=== PATIENT | male | born 1960 | race Hispanic/Latino ===

== ENCOUNTER 2023-07-21 05:45 | Day surgery (SDC) | payer OTHER ==
[2023-07-20 12:28] LABS: BASOPHILS # (AUTO) 0.05 K/uL (0.00-0.20); BASOPHILS % (AUTO) 0.5 % (0.0-5.0); EOSINOPHILS # (AUTO) 0.38 K/uL (0.00-0.70); EOSINOPHILS % (AUTO) 3.5 % (0.0-8.0); HEMATOCRIT 37.3 % (42-54); IMMATURE GRANULOCYTE ABSOLUTE 0.04 K/uL (0-1); LYMPHOCYTES # (AUTO) 0.9 K/uL (1.0-4.8); LYMPHOCYTES % (AUTO) 8.1 % (21.0-51.0); MEAN CORPUSCULAR HEMOGLOBIN 29.9 pg (27.0-33.0); MEAN CORPUSCULAR HGB CONC 32.2 g/dL (32.0-36.0); MONOCYTES # (AUTO) 0.7 K/uL (0.1-1.0); MONOCYTES % (AUTO) 6.2 % (3.0-13.0); NEUTROPHILS % (AUTO) 81.3 % (40.0-77.0); PLATELET COUNT (AUTO) 226 K/uL (130-400); RED BLOOD CELL COUNT(AUTO) 4.01 MIL/uL (4.50-6.20); RED CELL DISTRIBUTION WIDTH 13.3 % (11.0-15.5)
[2023-07-20 12:40] LABS: INR 0.94 (0.85-1.15); PROTHROMBIN TIME 10.9 SEC (9.6-11.6)
[2023-07-20 12:41] LABS: PARTIAL THROMBOPLASTIN TIME 29.7 SEC (26.3-35.5)
[2023-07-20 12:44] LABS: CREATININE 1.4 mg/dL (0.5-1.5); POTASSIUM 4.7 mmol/L (3.5-5.1)
[2023-07-20 12:45] VITALS: BP 115/64; PULSE 54; RESP 19
[2023-07-20 13:43] LABS: B-TYPE NATRIURETIC PEPTIDE 126 pg/mL (0-100)
[~2023-07-21] VITALS: Ht 170.2 cm; Wt 87.9 kg
[2023-07-21] VITALS (12 sets, daily range): BP systolic 112–161; BP diastolic 41–61; PULSE 51–65; RESP 16–18
[~2023-07-21 05:45] MED LIST: AEC81 PO; ATOR40TA71 PO; CHOL200013 PO; CLOP75TA32 PO; DOXY100T2 PO; EMPA25TA PO; FOLI0.8T22 PO; FURO20TA4 PO; INSU100V12 SQ; METO25TA6 PO
[2023-07-21] MEDS ORDERED: 0.9%NACL 1000ML 1,000 ML IV ONE (06:52)
[2023-07-21] MEDS ORDERED: LIDOCAINE HCL 400MG/20ML VIAL ONE (07:14)
[2023-07-21] MEDS ORDERED: MIDAZOLAM HCL 1 MG/ML 2ML VIAL ONE ×2 (07:15→09:19)
[2023-07-21] MEDS ORDERED: IODIXANOL 320 MG/ML 100 ML VIAL ONE (07:15)
[2023-07-21] MEDS ORDERED: FENTANYL CITRATE PF 50 MCG/1 ML 2ML VIAL ONE (07:15)
[2023-07-21] MEDS ORDERED: NITROGLYCERIN 50MG VIAL ONE (07:16)
[2023-07-21] MEDS ORDERED: HEPARIN 10,000 UNIT/10ML (1,000 UNIT/ML) VIAL ONE ×2 (07:16→09:28)
[2023-07-21] MEDS ORDERED: NICARDIPINE 25MG INJ IV ONE (07:35)
[2023-07-21] MEDS ORDERED: CLOPIDOGREL 300MG TAB ONE (08:16)
[2023-07-21] MEDS ORDERED: 0.9%NACL 1000ML 1,000 ML IV SCH (10:30)
[2023-07-21] MEDS ORDERED: DEXTROSE 50%-WATER 50 ML DISP.SYRIN IV PRN (10:30)
[2023-07-21] MEDS ORDERED: GLUCAGON 1MG KIT 1 MG ML IM PRN (10:30)
== END 2023-07-21 15:15 | disposition home or self-care (01) ==
LOC: DAH 05:45
PROVIDERS: ATTEND Internal Medicine Cardiovascular Disease
DX: I70.238 Atherosclerosis of native arteries of right leg with ulceration of other part of lower leg (principal); L97.818 Non-pressure chronic ulcer of other part of right lower leg with other specified severity; E11.51 Type 2 diabetes mellitus with diabetic peripheral angiopathy without gangrene; R55 Syncope and collapse; E11.22 Type 2 diabetes mellitus with diabetic chronic kidney disease; I12.9 Hypertensive chronic kidney disease with stage 1 through stage 4 chronic kidney disease, or unspecified chronic kidney disease; N18.30 Chronic kidney disease, stage 3 unspecified; I49.3 Ventricular premature depolarization; E78.5 Hyperlipidemia, unspecified; E66.9 Obesity, unspecified; Z79.01 Long term (current) use of anticoagulants; Z83.3 Family history of diabetes mellitus; Z79.82 Long term (current) use of aspirin; Z79.899 Other long term (current) drug therapy; Z68.30 Body mass index [BMI] 30.0-30.9, adult
CPT/HCPCS: 80048; 83880; 85025; 85610; 85730; 36415; 71045; 93005; 37229; 37232; 85347; 82948; 75716; C1887 ×4; C1894 ×2; C1769 ×8; C1760; C1893; C1724; C1725 ×5; J3010; J3490 ×3; J7030; J1644 ×2; J2250 ×2; Q9967; A4215; A4222; A4221; A4663; A4216; A4606; A4223 ×3; 99156; 99157

== ENCOUNTER 2023-09-07 05:55 | Day surgery (SDC) | payer OTHER ==
[2023-09-05 10:11] LABS: BASOPHILS # (AUTO) 0.05 K/uL (0.00-0.20); BASOPHILS % (AUTO) 0.6 % (0.0-5.0); EOSINOPHILS # (AUTO) 0.33 K/uL (0.00-0.70); EOSINOPHILS % (AUTO) 3.7 % (0.0-8.0); HEMATOCRIT 31.9 % (42-54); IMMATURE GRANULOCYTE ABSOLUTE 0.04 K/uL (0-1); LYMPHOCYTES # (AUTO) 0.8 K/uL (1.0-4.8); MEAN CORPUSCULAR HEMOGLOBIN 29.5 pg (27.0-33.0); MEAN CORPUSCULAR VOLUME 92.2 fL (79-99); MONOCYTES # (AUTO) 0.8 K/uL (0.1-1.0); MONOCYTES % (AUTO) 8.3 % (3.0-13.0); NEUTROPHILS # (AUTO) 7.1 K/uL (1.8-7.7); PLATELET COUNT (AUTO) 315 K/uL (130-400); RED BLOOD CELL COUNT(AUTO) 3.46 MIL/uL (4.50-6.20); RED CELL DISTRIBUTION WIDTH 13.1 % (11.0-15.5)
[2023-09-05 10:17] VITALS: BP 97/48; PULSE 57; RESP 18
[2023-09-05 10:22] LABS: CREATININE 1.4 mg/dL (0.5-1.5); POTASSIUM 4.1 mmol/L (3.5-5.1)
[2023-09-05 10:24] LABS: INR <= 0.93 (0.85-1.15); PROTHROMBIN TIME 10.8 SEC (9.6-11.6)
[2023-09-05 10:26] LABS: PARTIAL THROMBOPLASTIN TIME 32.5 SEC (26.3-35.5)
[2023-09-05 10:32] LABS: B-TYPE NATRIURETIC PEPTIDE 285 pg/mL (0-100)
[2023-09-07] VITALS (12 sets, daily range): BP systolic 119–162; BP diastolic 50–63; PULSE 50–57; RESP 14–17
[~2023-09-07] VITALS: Ht 170.2 cm; Wt 87.7 kg
[~2023-09-07 05:55] MED LIST changes: -ATOR40TA71 PO; +FERR-72 PO
[2023-09-07] MEDS: 0.9%NACL 1000ML 1,000 ML IV ONE (06:43)
[2023-09-07] MEDS ORDERED: NITROGLYCERIN 50MG VIAL ONE (07:06)
[2023-09-07] MEDS ORDERED: LIDOCAINE HCL 400MG/20ML VIAL ONE (07:06)
[2023-09-07] MEDS ORDERED: IODIXANOL 320 MG/ML 100 ML VIAL ONE (07:06)
[2023-09-07] MEDS ORDERED: HEPARIN 10,000 UNIT/10ML (1,000 UNIT/ML) VIAL ONE (07:06)
[2023-09-07] MEDS ORDERED: NICARDIPINE 25MG INJ IV ONE (07:06)
[2023-09-07] MEDS ORDERED: FENTANYL CITRATE PF 50 MCG/1 ML 2ML VIAL ONE (07:31)
[2023-09-07] MEDS ORDERED: MIDAZOLAM HCL 1 MG/ML 2ML VIAL ONE ×2 (07:31→09:16)
[2023-09-07] MEDS ORDERED: CLOPIDOGREL 300MG TAB ONE (08:17)
[2023-09-07] MEDS ORDERED: DEXTROSE 50%-WATER 50 ML DISP.SYRIN IV PRN (10:00)
[2023-09-07] MEDS ORDERED: 0.9%NACL 1000ML 1,000 ML IV SCH (10:00)
[2023-09-07] MEDS ORDERED: GLUCAGON 1MG KIT 1 MG ML IM PRN (10:00)
== END 2023-09-07 14:10 | disposition home or self-care (01) ==
LOC: DAH 05:55
PROVIDERS: ATTEND Internal Medicine Cardiovascular Disease
DX: I70.238 Atherosclerosis of native arteries of right leg with ulceration of other part of lower leg (principal); I70.92 Chronic total occlusion of artery of the extremities; R55 Syncope and collapse; I49.3 Ventricular premature depolarization; R00.2 Palpitations; I25.2 Old myocardial infarction; E11.51 Type 2 diabetes mellitus with diabetic peripheral angiopathy without gangrene; E11.22 Type 2 diabetes mellitus with diabetic chronic kidney disease; I12.9 Hypertensive chronic kidney disease with stage 1 through stage 4 chronic kidney disease, or unspecified chronic kidney disease; N18.30 Chronic kidney disease, stage 3 unspecified; E78.5 Hyperlipidemia, unspecified; E66.9 Obesity, unspecified; Z79.01 Long term (current) use of anticoagulants; Z79.899 Other long term (current) drug therapy; Z79.82 Long term (current) use of aspirin; Z83.3 Family history of diabetes mellitus; Z68.30 Body mass index [BMI] 30.0-30.9, adult
CPT/HCPCS: 80048; 83880; 85025; 85610; 85730; 36415 ×2; 71045; 93005; 75716; 85347; 82948 ×2; C9772; C1894 ×2; C1769 ×5; C1760; C1893; C1887; C2623; C1725 ×2; J3010; J3490 ×2; J7030; J1644 ×3; J2250 ×2; Q9967; A4215; A4222; A4221; A4663; A4216; A4606; A4223 ×2; 96360; 96361; 99156; 99157

== ENCOUNTER → 2023-09-25 | Outpatient (CLI) | payer OTHER | END | disposition home or self-care (01) | LOC: SHCH 14:05 | PROVIDERS: ATTEND Internal Medicine Cardiovascular Disease | DX: I11.9 Hypertensive heart disease without heart failure (principal); I49.3 Ventricular premature depolarization; R00.2 Palpitations; E11.9 Type 2 diabetes mellitus without complications; E78.5 Hyperlipidemia, unspecified | CPT/HCPCS: 93306 ==

== ENCOUNTER → 2023-10-17 | Outpatient (CLI) | payer OTHER ==
[2023-10-17] MEDS: REGADENOSON 0.4 MG/5 ML PF SYG IVP ONE (15:10)
== END | disposition home or self-care (01) ==
LOC: SHCH 08:12
PROVIDERS: ATTEND Internal Medicine Cardiovascular Disease
DX: R94.39 Abnormal result of other cardiovascular function study (principal); I50.1 Left ventricular failure, unspecified
CPT/HCPCS: 78452; 96374; 93017; J2785; A9500 ×2

== ENCOUNTER 2024-01-17 05:44 | Day surgery (SDC) | payer OTHER ==
[2024-01-15 10:30] LABS: BASOPHILS # (AUTO) 0.04 K/uL (0.00-0.20); BASOPHILS % (AUTO) 0.6 % (0.0-5.0); EOSINOPHILS # (AUTO) 0.41 K/uL (0.00-0.70); EOSINOPHILS % (AUTO) 5.8 % (0.0-8.0); HEMATOCRIT 32.1 % (42-54); IMMATURE GRANULOCYTE ABSOLUTE 0.01 K/uL (0-1); LYMPHOCYTES # (AUTO) 1.2 K/uL (1.0-4.8); LYMPHOCYTES % (AUTO) 16.7 % (21.0-51.0); MEAN CORPUSCULAR HEMOGLOBIN 30.5 pg (27.0-33.0); MEAN CORPUSCULAR VOLUME 89.9 fL (79-99); MONOCYTES # (AUTO) 0.4 K/uL (0.1-1.0); MONOCYTES % (AUTO) 6.2 % (3.0-13.0); NEUTROPHILS % (AUTO) 70.6 % (40.0-77.0); PLATELET COUNT (AUTO) 213 K/uL (130-400); RED BLOOD CELL COUNT(AUTO) 3.57 MIL/uL (4.50-6.20); RED CELL DISTRIBUTION WIDTH 14.3 % (11.0-15.5); WHITE BLOOD COUNT (AUTO) 7.1 K/uL (4.8-10.8)
[2024-01-15 10:31] VITALS: BP 158/76; PULSE 68; RESP 16
[2024-01-15 10:38] LABS: CREATININE 1.2 mg/dL (0.5-1.3); POTASSIUM 5.2 mmol/L (3.5-5.1)
[2024-01-15 10:39] LABS: INR <= 0.93 (0.85-1.15); PROTHROMBIN TIME 10.8 SEC (9.6-11.6)
[2024-01-15 10:40] LABS: PARTIAL THROMBOPLASTIN TIME 27.5 SEC (26.3-35.5)
[2024-01-15 10:57] LABS: B-TYPE NATRIURETIC PEPTIDE 74 pg/mL (0-100)
[2024-01-17] VITALS (11 sets, daily range): BP systolic 123–169; BP diastolic 55–75; PULSE 63–66; RESP 14–16
[~2024-01-17] VITALS: Ht 170.2 cm; Wt 86.6 kg
[~2024-01-17 05:44] MED LIST changes: +ATOR40TA69 PO; -DOXY100T2 PO; -EMPA25TA PO; +INSU100I58 SQ; -INSU100V12 SQ; +INSU300I SQ; +LOSA25TA41 PO; +METO-408 PO; -METO25TA6 PO; +SEMA0.258 SQ
[2024-01-17 06:59] LABS: CREATININE 1.3 mg/dL (0.5-1.3); POTASSIUM 4.5 mmol/L (3.5-5.1)
[2024-01-17] MEDS ORDERED: LIDOCAINE HCL 400MG/20ML VIAL ONE (07:08)
[2024-01-17] MEDS ORDERED: IOHEXOL-350 50ML VIAL IV ONE (07:08)
[2024-01-17] MEDS ORDERED: NITROGLYCERIN 50MG VIAL ONE (07:08)
[2024-01-17] MEDS ORDERED: IOHEXOL-350 75 ML VIAL IV ONE (07:11)
[2024-01-17] MEDS ORDERED: NICARDIPINE 25MG INJ IV ONE (07:13)
[2024-01-17] MEDS: 0.9%NACL 1000ML 1,000 ML IV ONE (07:20)
[2024-01-17] MEDS ORDERED: FENTANYL CITRATE PF 50 MCG/1 ML 2ML VIAL ONE (07:26)
[2024-01-17] MEDS ORDERED: MIDAZOLAM HCL 1 MG/ML 2ML VIAL ONE (07:26)
[2024-01-17] MEDS ORDERED: BIVALIRUDIN 250 MG/VIAL IV ONE (07:27)
[2024-01-17] MEDS ORDERED: DEXTROSE 50%-WATER 50 ML DISP.SYRIN IV PRN (09:30)
[2024-01-17] MEDS ORDERED: GLUCAGON 1MG KIT 1 MG ML IM PRN (09:30)
[2024-01-17] MEDS ORDERED: 0.9%NACL 1000ML 1,000 ML IV SCH (09:30)
== END 2024-01-17 13:00 | disposition home or self-care (01) ==
LOC: DAH 05:44
PROVIDERS: ATTEND Internal Medicine Cardiovascular Disease
DX: R94.39 Abnormal result of other cardiovascular function study (principal); I25.119 Atherosclerotic heart disease of native coronary artery with unspecified angina pectoris; I13.0 Hypertensive heart and chronic kidney disease with heart failure and stage 1 through stage 4 chronic kidney disease, or unspecified chronic kidney disease; E11.22 Type 2 diabetes mellitus with diabetic chronic kidney disease; N18.30 Chronic kidney disease, stage 3 unspecified; I50.22 Chronic systolic (congestive) heart failure; E78.5 Hyperlipidemia, unspecified; I49.3 Ventricular premature depolarization; Z83.3 Family history of diabetes mellitus; Z82.49 Family history of ischemic heart disease and other diseases of the circulatory system; Z79.82 Long term (current) use of aspirin; Z79.84 Long term (current) use of oral hypoglycemic drugs; Z79.899 Other long term (current) drug therapy; Z98.890 Other specified postprocedural states
CPT/HCPCS: 80048 ×2; 83880; 85025; 85610; 85730; 36415 ×2; 71045; 93005; 93454; 82948 ×2; C1894 ×2; C1760; J3010; J3490 ×2; J7030; J2250; J1644; Q9967; A4215; A4222; A4221; A4663; A4216; A4606; Q9965; A4223 ×3; 96360; 96361; 99156; 99157; J0583

== ENCOUNTER → 2025-01-31 | Outpatient (CLI) | payer OTHER ==
[~2025-01-31] MED LIST changes: +IOHEXOL-350 75 ML VIAL IV ONE
--- NOTE | 2025-02-01 09:23 | HMCIMG ---
CT ANGIO ABD AORTA W RUNOFF HISTORY: No additional history given. COMPARISON: None TECHNIQUE: Multiple sequential axial images of the abdomen, pelvis, both lower extremities were obtained including post processing sagittal and coronal reconstruction images. Patient was not given contrast through intravenous route. FINDINGS: CTA abdomen, pelvis, both lower extremity. Aorta: The abdominal aorta is normal luminal diameter. The origin of the SMA, celiac trunk, left and right renal arteries are patent. No evidence of aneurysm or dissection. Infrarenal portion of abdominal aorta is heavily calcified. Iliac bifurcation is heavily calcified but patent. The internal-external iliac arteries are patent. Right lower extremity: The right femoral, profunda, SMA are patent. Advanced calcific plaque formation is present of the midportion of the SFA and extending to the lower third without evidence of significant stenosis. Large plaque formation present within the popliteal artery with moderately severe 90% short segment stenosis of the distal SFA. Second stenosis at the popliteal artery present approximately 70%. Moderate stenosis present of the popliteal artery at the level of the origin of the KERVIN. Peroneal artery is patent to the level of the ankle with small collateral branches supplying the dorsalis pedis and plantar arteries. Posterior tibial artery demonstrates multisegment severe stenosis with occlusion at its distal third. Heavy plaque formation present. Left lower extremity: Left common femoral vein and profunda are patent. Dense plaque formation present within the anterior infra inguinal region of the femoral artery. Scattered plaque formation present throughout the SFA. 30% short segment stenosis at the distal third. Popliteal artery demonstrates heavy calcification plaque with severe short segment stenosis, tandem stenosis present. Distal popliteal artery demonstrates severe stenosis at the origin of the trifurcation. Severe stenosis present just beyond the origin of the KERVIN. Multifocal moderately severe stenosis of the [employer] which is patent to the level of the metaphysis of the ankle. Small collateral branches reconstitute the plantar artery which is heavily calcified. Peroneal artery is occluded. Other findings: The inferior aspect lungs are clear. Heart normal size. The liver, spleen, gallbladder appear normal. Pancreas is atrophic. Abdominal aorta normal diameter. No retroperitoneal lymphadenopathy. Renal cortex homogeneous bilaterally. Nonobstructive bowel pattern. Appendix appears normal. This enteric fat normal attenuation. No free fluid or free air within the abdomen or pelvis. Osseous structures intact. IMPRESSION: 1. Advanced calcific plaque formation within the iliac bifurcation without significant stenosis. 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 Additional popliteal stenosis at the origin of the KERVIN. Peroneal artery take to the level of the ankle a small collateral branch supplied to the dorsalis pedis and plantar arteries. Distal occlusion of the [employer]IAN. Severe short segment stenosis of the popliteal artery with additional severe stenosis of the popliteal artery at the origin of the KERVIN. Moderately severe stenosis of the [employer]ICIAN multifocal, patent to the level of the metaphysis of the ankle. Small collateral branches reconstitute the plantar artery which is heavily calcified. Peroneal artery is occluded. CT was performed with one or more following dose reduction techniques: automated exposure control, adjustment of the mA and kv according to patient's size, or use of a iterative reconstruction technique.
== END | disposition home or self-care (01) ==
LOC: RAH 08:05
PROVIDERS: ATTEND Internal Medicine Cardiovascular Disease
DX: I73.9 Peripheral vascular disease, unspecified (principal)
CPT/HCPCS: 75635; Q9967